=== PATIENT | male | born 1965 | race Caucasian/White ===

== ENCOUNTER 2025-07-02 11:24 | Observation (INO) | payer BC ==
[~2025-07-02] VITALS: Ht 177.8 cm; Wt 84.1 kg
--- NOTE | 2025-07-02 11:38 | ELECTROCARDIOGRAPH REPORT ---
[facility] Test Date: 2025-07-02 Test Time: 11:31:28 Pat Name: DIANE GARZON Department: EMERGENCY ROOM Room: [place] [address] Gender: M [employer] T[employer]: CESARIO : 1965 Requested By: TIFFANY WHITTINGTON Order Number: [id number] Reading MD: Dr. RM Grey Measurements Intervals [place] Rate: 54 P: 66 NC: 169 QRS: 53 QRSD: 90 T: 64 QT: 441 QTc: 418 Interpretive Statements Sinus bradycardia Minimal ST elevation, inferior leads Electronically Signed On 07-03-2025 16:43:[address] RM Grey Please click the below link to view image of tracing.
[2025-07-02 11:48] LABS: MEAN PLATELET VOLUME 6.8 FL (7.4-10.4); RED CELL DISTRIBUTION WIDTH 13.4 % (11.5-14.5)
[2025-07-02 11:58] LABS: APTT 28 SECONDS (22-32)
--- NOTE | 2025-07-02 11:59 | RADIOLOGY REPORT ---
EXAM: DI CHEST,SINGLE VIEW HISTORY: CP COMPARISON: None TECHNIQUE: Portable upright AP view of the chest was performed. FINDINGS: No pneumothorax, consolidative infiltrates, or pulmonary edema. The heart is not enlarged. IMPRESSION: No acute intrathoracic process.
[2025-07-02 12:10] LABS: CREATININE 0.97 MG/DL (0.60-1.10); PRO BRAIN NATRIURETIC PEPTIDE < 30 PG/ML (0-125); TOTAL CARBON DIOXIDE 32.2 MMOL/L (24-32); eCRCL 85 ML/MIN; eGFR 79 ML/MIN
--- NOTE | 2025-07-02 13:25 | Physician Documentation ---
Addendum CHIEF COMPLAINT/HPI: The patient is a 59-year-old male transferred here from [facility] in [place] after he presented there last night with chest pain. He reports that he had about 3 minutes of chest pain radiating into his left arm accompanied by diaphoresis. For the past few days he has had some numbness in his left fingers, as well. The patient had three troponins run at [place]. The initial troponin was six, the 2nd was 29 and the 3rd was 41. He is transferred here with a diagnosis of unstable angina for Cardiology consultation. The patient's heart score is three. He has a history of BPH for which he takes silodosin. REVIEW OF SYSTEMS: Constitutional: Denies chills, fatigue, fever, weight gain or weight loss. HEENT: Denies hearing loss, sinus pressure or visual changes. Respiratory: Denies cough, shortness of breath or wheezing. Cardiovascular: Denies chest pain, pain while walking (claudication), edema or palpitations. Gastrointestinal: Denies abdominal pain, blood in stool, constipation, diarrhea, heartburn, loss of appetite, nausea or vomiting. Genitourinary: Denies painful urination (dysuria), excessive amount of urine (polyuria) or urinary frequency. Metabolic/Endocrine: Denies cold intolerance, heat intolerance, excessive thirst (polydipsia) or excessive hunger (polyphagia). Neurological: Denies dizziness, extremity numbness, extremity weakness, headaches, seizures or tremors. Psychiatric: Denies anxiety or depression. Integumentary: Denies breast discharge, breast lump, hives, mole change(s), rash or skin lesion. Musculoskeletal: Denies back pain, joint pain, joint swelling or neck pain. Hematologic: Denies easily bleeding, easily bruises, lymphedema or issues with blood clots. Immunologic: Denies food allergies or seasonal allergies. PHYSICAL EXAMINATION: Vitals and nursing note reviewed. Constitutional: General: Patient is awake, alert, oriented x 4 in no acute distress and well appearing. Speech is clear and lucid. Appearance: Normal appearance. Patient is not ill-appearing, toxic-appearing or diaphoretic. HENT: Head: Normocephalic and atraumatic. Mouth: Mucous membranes are moist. Pharynx: Oropharynx is clear. Eyes: General: No scleral icterus. Extraocular Movements: Extraocular movements intact. Pupils: Pupils are equal, round, and reactive to light. Neck: Supple, no Kernig or Brudzinski sign. Cardiovascular: Rate and Rhythm: Normal rate and regular rhythm. Heart sounds: No murmur heard. Pulmonary: Effort: No respiratory distress. Breath sounds: No wheezing, rhonchi or rales. Abdominal: General: There is no distension. Palpations: There is no fluid wave, hepatomegaly or mass. Tenderness: There is no abdominal tenderness. There is no guarding. Musculoskeletal: General: No swelling or deformity. Skin: Coloration: Skin is not jaundiced. Findings: No erythema or rash. Neurological: Mental Status: Patient is alert. MEDICAL DECISION MAKING: EKG medically necessary in the evaluation of chest pain and interpreted by me at the time of patient evaluation. Rhythm is sinus bradycardia with a rate of 54. Minimal ST-elevation in the inferior leads Impression: Minimal ST-elevation in the inferior leads, otherwise normal EKG.. ECG reading does not show any acute signs of obvious ischemia. No evidence of A- V block. No short IA, delta waves, or wide QRS concerning for Ooylm-Mpgsiwuaa-Yhrhd. No long QT events on my read. I do not see evidence of Brugada with ST elevations in V1 through V3. No epsilon wave noted. No low voltage suggestive of pericardial effusion. No right ventricular strain pattern. This 59-year-old man is transferred here from [facility] after he experienced several minutes of chest pain last night and was found to have three gradually increasing troponin levels (though they were all within the normal limits). He will require admission for further evaluation. Departure Disposition: ADMITTED INPATIENT Admitted to Inpatient Unit: to hospitalist Admission Level of Care: PCU with Tele Impression: Primary Impression: Chest pain at rest Condition: Stable TIFFANY WHITTINGTON MD Jul 02, 2025 13:25
[2025-07-02] MEDS ORDERED: ZINC220T3 PO (14:13)
[2025-07-02] MEDS ORDERED: SILO8CAP2 PO (14:13)
[2025-07-02] MEDS ORDERED: CLON0.5T23 PO (14:13)
[2025-07-02] MEDS ORDERED: MAGN400C PO (14:13)
[2025-07-02] MEDS ORDERED: ZOLP-679 PO (14:13)
[2025-07-02] MEDS ORDERED: CHOL10006 PO (14:13)
[2025-07-02] MEDS ORDERED: DEXT5TAB PO (14:13)
[2025-07-02] MEDS ORDERED: magnesium sulf-water 4G/100mL 100 ML IV PRN (14:45)
[2025-07-02] MEDS ORDERED: bisacodyl 10mg suppository rectal RC PRN (14:45)
[2025-07-02] MEDS: PERFLUTREN PROTEIN-A MICROSPHR (Optison) 0.22 MG/ML 3ML VIAL IV ONE (14:45)
[2025-07-02] MEDS ORDERED: magnesium sulf-water 2g/50mL 50 ML IV PRN (14:45)
[2025-07-02] MEDS ORDERED: potassium Cl 20 mEq SR tablet PO PRN ×2 (14:45)
[2025-07-02] MEDS ORDERED: potassium Cl 40MEQ/1/2NS 520ml 520 ML IV PRN (14:45)
[2025-07-02] MEDS ORDERED: acetaminophen 650mg rectal suppository RC PRN (14:45)
[2025-07-02] MEDS ORDERED: ondansetron/PF 4mg/2ml inj IV PRN (14:45)
[2025-07-02] MEDS ORDERED: magnesium Cl slow-release 64mg tablet PO PRN (14:45)
[2025-07-02] MEDS ORDERED: mag hydrox/Alum hydrox/simeth 30ml oral suspension PO PRN (14:45)
[2025-07-02] MEDS ORDERED: magnesium hydroxide 30ml (MOM) UD suspension PO PRN (14:45)
[2025-07-02] MEDS ORDERED: metoprolol tartrate 1mg/ml inj IV PRN (14:50)
[2025-07-02] MEDS ORDERED: aminophylline 250mg/10ml inj. IV PRN (14:50)
[2025-07-02 15:43] LABS: CHOL/HDL RATIO 3.1 (0.00-4.99); LDL CHOLESTEROL 148 MG/DL (50-100)
[2025-07-02] MEDS: normal saline 1000ml 1,000 ML IV SCH (16:55)
--- NOTE | 2025-07-02 17:45 | HISTORY AND PHYSICAL-Residence ---
History & Physical Providers to CC Resident Creating Document: MARY SÁNCHEZ, RES CC: ANDI AGUIRRE MD ~ History of Present Illness Reason for Admit\Complaint: Chest pain History of Present Illness 59-year-old male patient with past medical history of obstructive sleep apnea, BPH, insomnia was transferred to us from [facility] at [place] for further evaluation of anginal pain. Patient stated that this has been going on for the last few months, he noticed multiple episodes of squeezing type of chest pain on left side of his chest on exertion which gets relieved by rest. However, last night while the patient was about to go sleep he noticed he developed palpitations and severe left-sided squeezing type of chest pain rated the pain five on 10 associated with epigastric burning pain radiating to left arm and noticed some numbness in left three fingers. Patient also endorsed some diaphoresis, lightheadedness and nausea during this episode, which eventually prompted him to go to hospital. While he was at the other hospital, they did serial troponins in the patient the 1st 6<<41<<46 and was eventually transferred to our facility. ED course Patient's serial troponins have been negative, EKG she reported sinus bradycardia, minimal ST elevation seen in inferior leads, not diagnostic for CT. Patient stated that he has had sleep deprivation for almost 30 years, and he has a history of obstructive sleep apnea he tried using CPAP for multiple years but wasn't comfortable using it,doesn't use it any more Patient said he takes supplemental garlic which helps him with his overall health Patient's primary care doctor Dr. 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 his Allergies: Coded Allergies: tamsulosin (Verified Adverse Reaction, Mild, DIZZINESS AND PALPITATIONS, 07/02/25) Home Medications Home Medications Active Reported Ambien (Zolpidem Tartrate) 10 Mg Tablet 1 Tab PO HSPRN PRN 30 Days Zinc (Zinc Sulfate) 50 Mg Zinc (220 Mg) Tablet 100 Mg PO DAILY 30 Days Rapaflo (Silodosin) 8 Mg Capsule 1 Cap PO DAILY 30 Days Magnesium (Magnesium Oxide) 400 Mg Magnesium Capsule 100 Mg PO DAILY 30 Days Zenzedi (Dextroamphetamine Sulfate) 5 Mg Tablet 1 Tab PO DAILY 30 Days Clonazepam 0.5 Mg Tab.rapdis 1 Tab PO PRN PRN 30 Days Vitamin D (Cholecalciferol) 1,000 Unit Capsule 1 Cap PO DAILY 30 Days Past Medical History Past Medical History Obstructive sleep apnea Benign prostatic hyperplasia Insomnia Past Surgical History Surgical History Comment Denied any surgical history Past Social History Social History Comment Patient quit smoking about a year ago before that he used to smoke half pack of cigarettes for 40 years He denies any alcohol use used to drink alcohol occasionally 10 years ago Patient denied any illicit drug use Patient has a significant cardiac family history, the patient's father had a CABG; patient's mother had cardiac stents placed Denied any significant cancer in family ROS ROS Constitutional: No fever, dizziness, weakness, no decrease in appetite HEENT: Normal vision. No sore throat, epistaxis, tinnitus Cardiovascular: No chest pain/discomfort, palpitations, syncope. no pedal edema Respiratory: No sob, cough,hemoptysis Gastrointestinal: No abdominal pain, nausea, vomiting. No diarrhea, melena. Genitourinary: No frquency, urgency, incontinence, nocturia. No dysuria, hematuria Musculoskeletal: Normal, no pains Endocrine: No fatigue, polydipsia, polyuria. No heat or cold intolerance Neurologic: No headache, vertigo. No weakness, numbness or tingling of extremities Psychiatric: No hallucinations/delusions, no anhedonia, no suicidal ideation Hematologic: No bruises Exam Vitals: Vital Signs Date Time Temp Pulse Resp B/P (MAP) Pulse Ox O2 Delivery O2 Flow Rate FiO2 07/02/25 16:57 63 16 112/79 (90) 98 0 07/02/25 11:37 97.5 General: General: Awake, oriented to person, place and time HEENT: Conjunctive are pink, sclerae clear, no icterus, pupil is equal in both sides, reactive to light, no ear discharge, no pharyngeal erythema or an edema. Neck: Supple, no JVD, no lymphadenopathy and thyromegaly. Chest: Equal air entry on both lungs, no additional sounds no rhonchi no wheezing at the moment. Cardiovascular: S1-S2 regular sinus rhythm and, regular rate, no gallops, no rubs, no murmurs Abdomen: No visible peristalsis, Bowel sounds present on auscultation, soft, no tenderness, no guarding, no rigidity Extremities: No obvious deformities, no pitting edema bilaterally, capillary refill intact, peripheral pulsations are intact on both sides Neurologic: Mental status: alert and conscious, oriented to place, person and time, preserved memory, normal speech. Cranial nerves I-XII: Normal. Motor system: Preserved power, coordination, no evidenced involuntary movements, strength 5/5 in four extremities. Sensory system: Preserved temperature, pain and vibration sensation. 2+ deep tendon reflexes in biceps, triceps, quadriceps. Negative Babinski. Cerebellar: No nystagmus, dysdiadochokinesia, normal [id number]-[id number] testing. Musculoskeletal: No joint swelling, deformities, inflammations, and no scoliosis and back tenderness Skin: Warm and dry. Dry oral mucosa. Diagnostic Data Last Recorded Lab Results: 07/02/25 1136 07/02/25 1136 Diagnostic Data: Laboratory Tests Test 07/02/25 11:36 Activated Partial Thromboplast Time 28 SECONDS (22-32) Coagulation Comments Advance Care Planning Advanced Care plannin - 30 Minutes (Spent 17 minutes discussing advanced care planning/resuscitative methods patient decided he wants to be full code) Additional Plan Assessment: 59-year-old male patient past medical history of obstructive sleep apnea and insomnia presented to the ED as a transfer for further evaluation of chest pain Possible unstable angina versus atypical chest pain Heart score 4 Patient presented left-sided chest pain squeezing type of pain rated the pain five on 10 associated epigastric burning pain radiated to left arm Prior multiple episodes of chest pain on exertion relieved with rest Significant family history of cardiac comorbidities Chest x-ray normal, patient is on room air, serial troponins negative EKG showed sinus bradycardia no ST segment elevations, proBNP within normal limits Plan Initiated the patient on aspirin 81 mg, atorvastatin 80 mg, nitroglycerin 0.4 mg sublingual p.r.n. Ordered Lexiscan for the patient rule out any reversible ischemia Echocardiogram ordered Continue telemetry monitoring Significant dyslipidemia Patient's cholesterol 223, LDL 148, HDL 73 Initiated the patient on atorvastatin 80 mg Recommend repeat lipid panel in the next 4-6 weeks Insomnia Continue patient's home medications zolpidem tartrate 10 mg HS prn and clonazepam 0.5 mg p.o. p.r.n. and magnesium oxide 400 mg Benign prostatic hyperplasia Continue patient's home medication silodosin 8 mg once daily Obstructive sleep apnea Recommended patient using CPAP or BiPAP, patient was hesitant. We will touch base with the patient regarding tomorrow again Chronic left lower extremity edema Patient stated that he has had left lower extremity pitting edema However on my evaluation he did not have any edema, ordered vascular ultrasound Code Status: Full code DVT Prophylaxis: Heparin Lines/Tubes: Morphine Nutrition: Heart healthy diet, NPO after midnight PT:yes Prognosis: Guarded Disposition: We will continue to monitor the patient, patient will undergo Lexiscan in a.m. The above note has been reviewed and supervised by the senior resident PGY 2/PGY 3. Patient was seen and examined and discussed with attending physician Mary Sánchez MD Internal medicine resident,PGY-1 Date of Service: Jul 02, 2025 Billing Provider: ANDI AGUIRRE MD, JAHNAVI, RES Jul 02, 2025 17:45
--- NOTE | 2025-07-02 17:45 | CARDIOLOGY REPORT ---
APPROVED REPORT EXAM: Comprehensive 2D, Doppler, and color-flow Echocardiogram. 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 2.94 cm IVC 16.49 mm FS (%) 28.9 % SV 55.0 ml CO 3.5 L/min M-Mode Dimensions Left Atrium(MM) 3.22 (2.5-4.0cm) Aortic Root 3.17 (2.2-3.7cm) Aortic Cusp Exc 2.16 (1.5-2.0cm) Aortic Valve AoV Peak Dann. 147.6 cm/s AoV VTI 24.5 cm AO Peak GR. 8.7 mmHg AO Mean GR. 4 mmHg LVOT VTI 22.12 cm LVOT Peak Dann. 119.1 cm/s BETZAIDA(VTI)/BSA 2.70 cm2/m2 BETZAIDA (VTI) 2.70 cm2 AV DI 0.90 % Mitral Valve MV E Velocity 62.5 cm/s MV Peak Gr. 2 mmHg MV DECEL TIME 292 ms MV A Velocity 53.6 cm/s MV PHT 68 ms E/A Ratio 1.2 MVA (PHT) 3.24 cm2 MV VMax 72.6 cm/s TDI Lateral E' P. V 13.66 cm/s Medial E' P. V 10.61 cm/s E/Lateral E' 4.6 E/Medial E' 5.9 Tricuspid Valve TR P. Velocity 160 cm/s RAP ESTIMATE 10 mmHg TR Peak Gr. 10 mmHg RVSP 20 mmHg LEFT VENTRICLE Normal LV size and wall thickness. Overall systolic function is normal. LVEF is 60-65%. RIGHT VENTRICLE RV is normal size and function. ATRIA The left atrium size is normal. AORTIC VALVE Trileaflet AV appears mildly sclerotic without stenosis. No insufficiency by color and spectral flow Doppler. MITRAL VALVE Mild mitral annular calcification without stenosis. Trace regurgitation. TRICUSPID VALVE The tricuspid valve is normal in structure with trace regurgitation. PULMONIC VALVE Pulmonic valve is grossly normal in structure with physiologic insufficiency. GREAT VESSELS The aortic root is normal in size. The ascending aorta is normal in size. The IVC is normal in size and collapses >50% with inspiration. PERICARDIUM Normal pericardium. No effusion. Other Information Study Quality: Adequate Conclusion Normal LV size and wall thickness. Overall systolic function is normal. LVEF is 60-65%. RV is normal size and function. The left atrium size is normal. Trileaflet AV appears mildly sclerotic without stenosis. No insufficiency by color and spectral flow Doppler. Mild mitral annular calcification without stenosis. Trace regurgitation. The tricuspid valve is normal in structure with trace regurgitation. Normal pericardium. No effusion.
[2025-07-02 18:00] VITALS: BP 120/78; PULSE 59; RESP 12; TEMP 98; O2SAT 100
[2025-07-02 20:00] VITALS: RESP 12; O2SAT 100
[2025-07-02] MEDS: docusate sod 100mg capsule PO SCH (20:00)
[2025-07-02] MEDS: heparin, porcine 5000 units/ml vial SQ SCH (20:00)
[2025-07-02] MEDS: K and/or MAG REPLACEMENT MC SCH (20:00)
[2025-07-02 22:00] VITALS: BP 104/67; PULSE 60; RESP 18; TEMP 97.6; O2SAT 95
[2025-07-03] VITALS (12 sets, daily range): BP systolic 103–126; BP diastolic 60–78; PULSE 58–90; RESP 13–18; TEMP 97.2–97.8; O2SAT 94–100
[2025-07-03 06:53] LABS: MEAN PLATELET VOLUME 7.0 FL (7.4-10.4); RED CELL DISTRIBUTION WIDTH 13.0 % (11.5-14.5)
[2025-07-03 07:14] LABS: CREATININE 1.08 MG/DL (0.60-1.10); PHOSPHORUS 3.8 MG/DL (2.3-4.5); TOTAL CARBON DIOXIDE 27.8 MMOL/L (24-32); eCRCL 75 ML/MIN; eGFR 70 ML/MIN
[2025-07-03] MEDS: cholecalciferol (vitamin D3) 1,000 unit (25mcg) tablet PO SCH (07:47)
[2025-07-03] MEDS: aspirin 81mg, enteric-coated 1 TAB TABLET.DR PO SCH (07:58)
[2025-07-03] MEDS: regadenoson 0.4mg/5ml syringe IV PRN (09:34)
--- NOTE | 2025-07-03 10:41 | RADIOLOGY REPORT ---
HISTORY: cp TECHNIQUE: At peak stress, 32.7 mCi of sestamibi was administered intravenously. Soon thereafter, gated SPECT imaging of the heart was performed with the patient in the supine position. At rest, 8.0 mCi of sestamibi was administered intravenously. Soon thereafter, gated SPECT imaging of the heart was performed with the patient in the supine position. FINDINGS: There is a small fixed perfusion of Mild Severe at the inferior wall from mid cavity to base. No reversible perfusion defect is seen. The left ventricular cavity is normal in size. Calculated LVEF is 62 %. No segmental wall motion abnormality. IMPRESSION: Small fixed perfusion defect at the inferior wall from mid cavity to base. No reversible perfusion defect is seen. LVEF is 62 %.
[2025-07-03] MEDS ORDERED: PANT-47 PO (12:29)
[2025-07-03] MEDS ORDERED: ASPI-1071 PO (12:29)
[2025-07-03] MEDS ORDERED: ATOR-429 PO (12:29)
--- NOTE | 2025-07-03 12:43 | DISCHARGE SUMMARY-Residence ---
Discharge Summary Providers to CC Resident Creating Document: MARY FRIED, ADITYA CC: ANDI AGUIRRE MD ~ Discharge Summary Admission Diagnosis: CP Hospital Course DATE OF ADMISSION: 07/02/2025 DATE OF DISCHARGE: 07/03/2025 Discharge Diagnosis\Comment: Possible unstable angina versus atypical chest pain, ACS ruled out Significant dyslipidemia Insomnia Benign prostatic hyperplasia Obstructive sleep apnea Chronic left lower extremity edema Operations\Procedures: Lexiscan 07/03/2025 Consultants: None Complications: None Condition on DC: Stable New Medications: Pantoprazole Sodium (PROTONIX tablet) 40 Mg Tablet.dr 40 MG PO DAILY for 30 Days, #30 TAB.SR Aspirin (Ecotrin*) 81 Mg Tablet.dr 1 TAB PO DAILY for 30 Days, #30 TAB.SR Atorvastatin Calcium* (Lipitor*) 80 Mg Tablet 1 TAB PO DAILY for 30 Days, #30 TAB Continued Medications: Cholecalciferol (Vitamin D) 1,000 Unit Capsule 1 CAP PO DAILY for 30 Days, #30 CAP 0 Refills Clonazepam (Clonazepam) 0.5 Mg Tab.rapdis 1 TAB PO PRN PRN for INSOMNIA for 30 Days, #60 TAB 0 Refills Dextroamphetamine Sulfate (Zenzedi) 5 Mg Tablet 1 TAB PO PRN for 30 Days, #30 TAB 0 Refills Magnesium Oxide (Magnesium) 400 Mg Magnesium Capsule 100 MG PO DAILY for 30 Days, #30 CAP 0 Refills Silodosin (Rapaflo) 8 Mg Capsule 1 CAP PO MWTSA for 30 Days, #30 CAP 0 Refills every other day Zinc Sulfate (Zinc) 50 Mg Zinc (220 Mg) Tablet 100 MG PO DAILY for 30 Days, #30 TAB 0 Refills Zolpidem Tartrate (Ambien) 10 Mg Tablet 1 TAB PO HSPRN PRN for sleep for 30 Days, #30 TAB 0 Refills Discharge Summary: HPI as per admitting physician 59-year-old male patient with past medical history of obstructive sleep apnea, BPH, insomnia was transferred to us from [facility] for further evaluation of anginal pain. Patient stated that this has been going on for the last few months, he noticed multiple episodes of squeezing type of chest pain on left side of his chest on exertion which gets relieved by rest. However, last night while the patient was about to go sleep he noticed he developed palpitations and severe left-sided squeezing type of chest pain rated the pain five on 10 associated with epigastric burning pain radiating to left arm and noticed some numbness in left three fingers. Patient also endorsed some diaphoresis, lightheadedness and nausea during this episode, which eventually prompted him to go to hospital. While he was at the other hospital, they did serial troponins in the patient the 1st 6<<41<<46 and was eventually transferred to our facility. ED course Patient's serial troponins have been negative, EKG she reported sinus bradyc ardia, minimal ST elevation seen in inferior leads, not diagnostic for TN. Patient stated that he has had sleep deprivation for almost 30 years, and he has a history of obstructive sleep apnea he tried using CPAP for multiple years but wasn't comfortable using it,doesn't use it any more Patient said he takes supplemental garlic which helps him with his overall health Patient's primary care doctor Dr. 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 for further evaluation of anginal pain. After arrival to our hospital, patient did not endorse any chest pain. His troponins were within normal limits, EKG showed sinus bradycardia no ST segment elevations, proBNP within normal limits. In view of patient's heart score four, with significant cardiac family history and significant smoking history, we initiated the patient on aspirin 81 mg and patient had significant deranged dyslipidemia we initiated the patient atorvastatin 80 mg. Lexiscan was ordered with the patient to rule out any cardiac ischemia. Patient underwent Lexiscan which was negative. Patient's history of insomnia we continued his home medication zolpidem tartrate 10 mg HS prn and clonazepam 0.5 mg p.o. p.r.n. and magnesium oxide 400 mg. Patient has a history of benign prostatic hyperplasia we continued his home medication silodosin 8 mg once daily. During the hospital stay, patient was asymptomatic did not have any chest pain, palpitations and did not require any acute interventions. Strongly recommended patient to establish care with the office communication professor on outpatient basis as patient has significant cardiac family history, significant smoking history Significant imaging Chest x-ray 07/02/2025 No acute intrathoracic process. Echocardiogram 07/02/2025 Normal LV size and wall thickness. Overall systolic function is normal. LVEF is 60-65%. RV is normal size and function. The left atrium size is normal. Trileaflet AV appears mildly sclerotic without stenosis. No insufficiency by color and spectral flow Doppler. Mild mitral annular calcification without stenosis. Trace regurgitation. The tricuspid valve is normal in structure with trace regurgitation. Normal pericardium. No effusion. Cardiac imaging NM 07/03/2025 Small fixed perfusion defect at the inferior wall from mid cavity to base. No reversible perfusion defect is seen. LVEF is 62 %. Physical examination the time of discharge General: Awake, oriented to person, place and time HEENT: Conjunctive are pink, sclerae clear, no icterus, pupil is equal in both sides, reactive to light, no ear discharge, no pharyngeal erythema or an edema. Neck: Supple, no JVD, no lymphadenopathy and thyromegaly. Chest: Equal air entry on both lungs, no additional sounds no rhonchi no wheezing at the moment. Cardiovascular: S1-S2 regular sinus rhythm and, regular rate, no gallops, no rubs, no murmurs Abdomen: No visible peristalsis, Bowel sounds present on auscultation, soft, no tenderness, no guarding, no rigidity Extremities: No obvious deformities, no pitting edema bilaterally, capillary refill intact, peripheral pulsations are intact on both sides Neurologic: Mental status: alert and conscious, oriented to place, person and time, preserved memory, normal speech. Cranial nerves I-XII: Normal. Motor system: Preserved power, coordination, no evidenced involuntary movements, strength 5/5 in four extremities. Sensory system: Preserved temperature, pain and vibration sensation. 2+ deep tendon reflexes in biceps, triceps, quadriceps. Negative Babinski. Cerebellar: No nystagmus, dysdiadochokinesia, normal [id number] testing. Musculoskeletal: No joint swelling, deformities, inflammations, and no scoliosis and back tenderness Skin: Warm and dry. Dry oral mucosa. Vital Signs Date Time Temp Pulse Resp B/P (MAP) Pulse Ox O2 Delivery O2 Flow Rate FiO2 07/03/25 09:33 74 16 113/70 98 Room Air 07/03/25 02:00 97.8 07/02/25 16:57 0 Laboratory Tests Test 07/02/25 11:36 07/02/25 13:33 07/02/25 14:27 07/03/25 05:58 White Blood Count 5.8 X10'3 5.6 X10'3 Red Blood Count 5.32 X10'6 5.11 X10'6 Hemoglobin 16.2 g/dl 15.5 g/dl Hematocrit 47.7 % 44.7 % Mean Corpuscular Volume 89.7 FL 87.4 FL Mean Corpuscular Hemoglobin 30.4 PG 30.4 PG Mean Corpuscular Hemoglobin Concent 33.9 g/dL 34.8 g/dL Red Cell Distribution Width 13.4 % 13.0 % Platelet Count 217 X10'3 220 X10'3 Mean Platelet Volume 6.8 FL 7.0 FL Neutrophils (%) (Auto) 68.4 % 61.1 % Lymphocytes (%) (Auto) 22.5 % 26.6 % Monocytes (%) (Auto) 7.9 % 8.9 % Eosinophils (%) (Auto) 1.0 % 3.0 % Basophils (%) (Auto) 0.2 % 0.4 % Neutrophils # (Auto) 3.9 X10'3 3.4 X10'3 Lymphocytes # (Auto) 1.3 X10'3 1.5 X10'3 Monocytes # (Auto) 0.5 X10'3 0.5 X10'3 Eosinophils # (Auto) 0.1 X10'3 0.2 X10'3 Basophils # (Auto) 0.0 X10'3 0.0 X10'3 CBC Comment Activated Partial Thromboplast Time 28 SECONDS Coagulation Comments Sodium Level 142 MMOL/L 140 MMOL/L Potassium Level 4.3 MMOL/L 4.0 MMOL/L Chloride Level 104 MMOL/L 104 MMOL/L Carbon Dioxide Level 32.2 MMOL/L 27.8 MMOL/L Anion Gap 6 8 Blood Urea Nitrogen 14 MG/DL 19 MG/DL Creatinine 0.97 MG/DL 1.08 MG/DL Estimated GFR/1.73 m2 79 ML/MIN 70 ML/MIN BUN/Creatinine Ratio 14.4 17.6 Glucose Level 91 MG/DL 102 MG/DL Hemoglobin A1c 5.3 % Calcium Level 9.2 MG/DL 9.0 MG/DL Troponin I High Sensitivity 18 ng/L 11 ng/L 13 ng/L Pro-B-Type Natriuretic Peptide < 30 PG/ML Albumin 4.1 G/DL 3.6 G/DL Triglycerides Level 59 MG/DL Cholesterol Level 223 MG/DL LDL Cholesterol 148 MG/DL HDL Cholesterol 73 MG/DL Cholesterol/HDL Ratio 3.1 Thyroid Stimulating Hormone (TSH) 2.18 ulU/ml Chemistry Comments Troponin I High Sens Percent Delta 38 % 18 % Troponin I Hi Sens Absolute Change -7 ng/L 2 ng/L Phosphorus Level 3.8 MG/DL Magnesium Level 2.1 MG/DL Total Bilirubin 0.8 MG/DL Aspartate Amino Transf (AST/SGOT) 15 U/L Alanine Aminotransferase (ALT/SGPT) 18 U/L Alkaline Phosphatase 85 IU/L Total Protein 6.6 G/DL Globulin 3.0 G/DL Albumin/Globulin Ratio 1.2 Discharge advise Follow up with your primary care doctor within a week Please establish care with a office communication professor as you have significant cardiac family history, significant smoking history Recommend lifestyle modification, choose healthy foods, high-fiber intake low- sodium diet, anti-reflux diet Your cholesterol levels were high, we are initiating you on a statin. Returned to ED in case of any shortness of breath palpitations or chest pain *Problems/Diagnosis: (1) Chest pain at rest Status: Acute Total Time Spent on D/C: > 30 Minutes Date of Service: Jul 03, 2025 Billing Provider: ANDI AGUIRRE MD, JAHNAVI, RES Jul 03, 2025 12:43
== END 2025-07-03 13:18 | disposition home or self-care (01) ==
LOC: ER 11:25 → ED HOLD 14:49 → PCU 3S 17:49
PROVIDERS: ADMIT Family Medicine; ATTEND Family Medicine
DX: R07.89 Other chest pain (principal); R00.1 Bradycardia, unspecified; E78.5 Hyperlipidemia, unspecified; N40.0 Benign prostatic hyperplasia without lower urinary tract symptoms; R60.0 Localized edema; G47.30 Sleep apnea, unspecified; R60.1 Generalized edema; G47.00 Insomnia, unspecified; Z79.899 Other long term (current) drug therapy; Z98.890 Other specified postprocedural states
CPT/HCPCS: 36415; 71045; 78452; 80048; 80053; 80061; 83036; 83735; 83880; 84100; 84443; 84484; 85025; 85730; 87081; 93005; 93017; 93306; 96360; 96361; 96372; 99285; A9500; G0378; J1644; J2785; J7030